=== PATIENT | male | born 1975 | race Caucasian/White ===

== ENCOUNTER 2021-01-21 13:41 | Emergency (ER) | payer OTHER, BC, MEDICAID, SELFPAY ==
--- NOTE | ~2021-01-21 | XR_ITS ---
EXAMINATION: XR hand LT min 3V DATE: 01/21/2021 14:22 INDICATION: Pain and swelling at the left second and third digits TECHNIQUE: Posteroanterior, oblique and lateral views of the left hand were obtained. COMPARISON: None. FINDINGS: Alignment is normal. Subtle old healed fracture deformity at the neck of the fourth metacarpal. No ac sky fracture. Joint spaces are normal. Small bone island at the fourth middle phalanx. No cortical er osions or periosteal reaction. Nonspecific mild soft tissue swelling along the proximal aspect of the left second digit and about the third proximal interphalangeal joint. No soft tissue gas or radiopaq ue foreign bodies. IMPRESSION: 1. No acute osseous abnormality. Reviewed, dictated and finalized at location B.
[2021-01-21 13:59] VITALS: BP 158/91; PULSE 74; RESP 18; TEMP 37.2; O2SAT 100
--- NOTE | 2021-01-21 14:55 | ED.UPPEXIN ---
HPI - Extremity Injury (Upper) General Chief Complaint: Extremity Injury, Upper Stated Complaint: hand injury Time Seen by Provider: 01/21/21 14:42 Source: patient Mode of arrival: ambulatory Limitations: no limitations History of Present Illness HPI narrative: This is a 45 year old male that presents to the ER after an injury at work this morning. Jammed his fingers on a structure of a conveyor belt. Pain mostly in the second and third digit. Worse with movement and relieved with rest. Reports swelling to the area. Denies decreased ROM or numbness. Related Data Home Medications Medication Instructions Recorded Confirmed No Home Medications 01/21/21 01/21/21 Allergies Allergy/AdvReac Type Severity Reaction Status Date / Time No Known Allergies Allergy Verified 01/21/21 14:07 Review of Systems Review of Systems: CONSTITUTIONAL: Denies fever MUSCULOSKELETAL: Reports joint pain, and myalgia. NEUROLOGIC: Denies numbness All systems reviewed & are unremarkable except as noted in HPI and below PMFSH Past Medical History Medical History (Updated 01/21/21 @ 15:36 by Wendy Bullard PA-C) History of epilepsy Social History Social History (Updated 01/21/21 @ 14:59 by Wendy Bullard PA-C) Smoking status: Current every day smoker Substance use: never Exam Narrative: GENERAL: Well-appearing, well-nourished, and in no acute distress. HEAD: Normocephalic, atraumatic. EYES: EOMI. EXTREMITIES: Normal range of motion. Mild edema about the left second finger with bruising. Normal radial pulses. Normal sensation SKIN: Warm, dry, no rash. NEURO: No focal deficits. Alert and oriented x3. PSYCH: Normal mood and affect Course Vital Signs Vital signs: Vital Signs Temperature 98.9 F 01/21/21 13:59 Pulse Rate 74 01/21/21 13:59 Respiratory Rate 18 01/21/21 13:59 Blood Pressure 158/91 H 01/21/21 13:59 Pulse Oximetry 100 01/21/21 13:59 Temperature 98.9 F 01/21/21 13:59 Pulse Rate 74 01/21/21 13:59 Respiratory Rate 18 01/21/21 13:59 Blood Pressure 158/91 H 01/21/21 13:59 Pulse Oximetry 100 01/21/21 13:59 Procedures Orthopedic Splinting/Casting Injury #1: Splinting/Casting Date: 01/21/21 Splinting/Casting Time: 15:34 Side: left Upper Extremity Injury Location: finger Upper Extremity Immobilizer: finger (other) Splint: prefabricated Pre-Formed: metal foam finger splint Pre-Procedure Neuro Vascular Exam: normal Post-Procedure Neuro Vascular Exam: normal MDM - Extremity Injury (Upper) MDM Narrative Medical decision making narrative: Patient presents to the emergency department for left hand injury sustained earlier this morning. Reports injury to the second and third fingers. Left hand x-rays without acute osseous abnormalities. Patient was instructed on care of finger sprain. He is to follow-up with primary care doctor. He was given warnings to return to the ER Imaging Data Radiologist's impression: ITS Impressions Hand X-Ray 01/21/21 14:29 IMPRESSION: 1. No acute osseous abnormality. Critical Care Time Critical Care Time Critical Care Time: No Discharge Plan Discharge Clinical Impression: Finger sprain Qualifiers: Encounter type: initial encounter Finger: index finger Sprain of finger site: interphalangeal joint Laterality: left Qualified Code(s): S63.631A - Sprain of interphalangeal joint of left index finger, initial encounter Patient Disposition: Home, Self-Care Condition: Stable Instructions: Finger Sprain (ED) Additional Instructions: Return to the emergency department if you experience fever, redness and swelling of your hand, numbness, or any other symptoms that are concerning to you Rest. Ice to the area. Tylenol or ibuprofen as needed for discomfort Follow-up with your primary care doctor Prescriptions: No Action No Home Medications RF: 0 Foll
== END 2021-01-21 15:46 | disposition home or self-care (01) ==
PROVIDERS: Emergency Provider Emergency Medicine
DX: S63.631A Sprain of interphalangeal joint of left index finger, initial encounter (principal); G40.909 Epilepsy, unspecified, not intractable, without status epilepticus; F17.200 Nicotine dependence, unspecified, uncomplicated; W22.8XXA Striking against or struck by other objects, initial encounter
CPT/HCPCS: 29130; 73130; 99283

== ENCOUNTER 2022-04-09 12:03 | Emergency (ER) | payer OTHER, MEDICAID, SELFPAY ==
--- NOTE | ~2022-04-09 | XR_ITS ---
EXAMINATION: XR lumbar spine 2-3V DATE: 04/09/2022 13:12 INDICATION: Low back pain, bilateral lower limb numbness TECHNIQUE: Anteroposterior and lateral views of the lumbar spine, and cone-down lateral view of the l umbosacral junction were obtained. COMPARISON: None. FINDINGS: No fracture, dislocation, or subluxation. The vertebral body heights and intervertebral dis c spaces are normal. The paravertebral soft tissues are unremarkable. There is mild facet joint osteo arthritis of the lower lumbar spine. IMPRESSION: 1. No acute osseous abnormality. Reviewed, dictated and finalized at location A. MANAGER
[2022-04-09 12:12] VITALS: BP 147/82; PULSE 70; RESP 12; TEMP 37.4; O2SAT 100
--- NOTE | 2022-04-09 13:33 | ED.BACK ---
HPI - Back Pain/Injury General Chief Complaint: Back Pain/Injury Stated Complaint: Back and neck pain Time Seen by Provider: 04/09/22 12:50 History of Present Illness HPI Narrative: 47-year-old male history of seizures presents to the emergency room for evaluation of lower back pain. 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 Patient states pain is worse with ambulation. Denies any anesthesias or saddle paresthesia. Denies any bowel or bladder habits. No low back red flags. Pain is worse with rotation and lateral bend Related Data Allergies Allergy/AdvReac Type Severity Reaction Status Date / Time No Known Allergies Allergy Verified 01/21/21 14:07 Review of Systems Review of Systems: CONSTITUTIONAL: Denies fever, chills, or sweats. EYES: Denies visual changes, redness, or discharge. ENT: Denies rhinorrhea, congestion, sore throat, or otalgia. CARDIOVASCULAR: Denies chest pain, palpitations, or edema. RESPIRATORY: Denies cough or dyspnea. GASTROINTESTINAL: Denies abdominal pain, nausea, vomiting, or diarrhea. GENITOURINARY: Denies dysuria or hematuria. SKIN: Denies rash or itching. MUSCULOSKELETAL: Reports low back pain NEUROLOGIC: Denies headache, numbness, dizziness, or weakness. PSYCHIATRIC: Denies anxiety or depression. [facility] Past Medical History Medical History History of epilepsy Social History Social History Smoking status: Current every day smoker Substance use: never Exam Narrative: GENERAL: Well-appearing, well-nourished, no physical limitations, and in no acute distress. HEAD: Normocephalic, atraumatic. EYES: Conjunctivae normal, PERRLA and EOMI. CHEST: Clear to auscultation. No respiratory distress. No wheezes rales or rhonchi. HEART: Regular rate and rhythm. No murmur heard. Normal peripheral pulses. BACK: No midline lumbar tenderness, step-offs, bony abnormality; limited range of motion bilateral rotation and lateral bend; +SLE LLE EXTREMITIES: Normal range of motion. No edema. No clubbing or cyanosis SKIN: Warm, dry, no rash. No noted wounds NEURO: No focal deficits. Alert and oriented x3. MAEW. CN's II-XI intact bilaterally, antalgic gait PSYCH: Cooperative. Normal mood and affect. Course Vital Signs Vital signs: Vital Signs Temperature 37.4 C 04/09/22 12:12 Pulse Rate 70 04/09/22 12:12 Respiratory Rate 12 04/09/22 12:12 Blood Pressure 147/82 H 04/09/22 12:12 Pulse Oximetry 100 04/09/22 12:12 Temperature 37.4 C 04/09/22 12:12 Pulse Rate 70 04/09/22 12:12 Respiratory Rate 12 04/09/22 12:12 Blood Pressure 147/82 H 04/09/22 12:12 Pulse Oximetry 100 04/09/22 12:12 Discharge Plan Discharge Clinical Impression: Strain of lumbar region Patient Disposition: Home, Self-Care Condition: Stable Instructions: Antibiotic Form, Acute Low Back Pain (ED) Prescriptions: New methocarbamol 500 mg tablet 500 mg PO TID Qty: 21 0RF naproxen 500 mg tablet 500 mg PO BID Qty: 14 0RF Follow-up/Referrals: PHYSICIAN,CARROTING MACHINE OFFBEARER [Primary Care Provider] - Stand Alone Forms: Work/School Release IP Time of Disposition: 13:36
== END 2022-04-09 13:53 | disposition home or self-care (01) ==
LOC: ANHED 13:43
PROVIDERS: Emergency Provider Nurse Practitioner Family; PCP Nurse Practitioner Family
DX: S39.012A Strain of muscle, fascia and tendon of lower back, initial encounter (principal); F17.200 Nicotine dependence, unspecified, uncomplicated; X50.0XXA Overexertion from strenuous movement or load, initial encounter; Y99.0 Civilian activity done for income or pay
CPT/HCPCS: 72100; 99283

== ENCOUNTER 2022-06-20 15:03 | Emergency (ER) | payer OTHER, BC, SELFPAY ==
--- NOTE | ~2022-06-20 | XR_ITS ---
EXAMINATION: XR wrist LT min 3V DATE: 06/20/2022 15:48 INDICATION: Left wrist pain. Fall. TECHNIQUE: 4 views of left wrist were obtained. COMPARISON: Left hand radiographs 01/21/2021 FINDINGS: Bone alignment is normal. No fracture. Joint spaces are normal. IMPRESSION: 1. No fracture. Reviewed, dictated and finalized at location A. ER [employer] IMPRESSION: 1. No fracture.
[2022-06-20 15:30] VITALS: BP 154/79; PULSE 93; RESP 14; TEMP 36.6; O2SAT 100
--- NOTE | 2022-06-20 17:46 | ED.UPPEXIN ---
HPI - Extremity Injury (Upper) General Chief Complaint: Extremity Injury, Upper Stated Complaint: L. wrist injury Time Seen by Provider: 06/20/22 16:46 History of Present Illness HPI narrative: Patient is a 47-year-old male who presents ER with left wrist injury. He was at work when he tripped around one of his machines. He fell forward and directly onto his wrist. Sudden onset pain. Feels like he may have felt a pop. Has some tingling in the tips of his fingers. Has limited range of motion due to pain in the left wrist. Did not strike his head or lose consciousness. Related Data Allergies Allergy/AdvReac Type Severity Reaction Status Date / Time No Known Allergies Allergy Verified 01/21/21 14:07 Review of Systems Musculoskeletal: Musculoskeletal: Reports arthralgias and Reports joint swelling Integumentary/Breasts: Skin/Breast: Denies erythema and Denies rash Neurologic: Denies syncope, Denies focal weakness, Reports numbness (Fingertip tingling) and Denies weakness PMFSH Past Medical History Medical History (Updated 06/20/22 @ 18:26 by Manuel Donaldson MD) History of epilepsy Surgical History Surgical History (Updated 06/20/22 @ 18:26 by Manuel Donaldson MD) No pertinent past surgical history Social History Social History Smoking status: Current every day smoker Substance use: never Exam Narrative: GENERAL: Well-appearing, well-nourished, and in no acute distress. HEAD: Normocephalic, atraumatic. HEART: Regular rate and rhythm. Normal peripheral pulses. EXTREMITIES: Focused exam of the left upper extremity reveals tenderness over the carpal tunnel on around the radial aspect of the wrist. Slight swelling noted. Limited range of motion of the wrist due to pain. Normal flexion-extension of the fingers with brisk capillary refill. Patient is able to supinate and pronate without issue. No pain or tenderness at the elbow. Gross sensation intact in the hand without testing for two-point discrimination. SKIN: Warm, dry, no rash. NEURO: Alert and oriented x3. PSYCH: Normal mood and affect. Course Course Emergency Course: Patient informed of results of the x-ray which I reviewed myself. Patient reports he does not tolerate Velcro wrist splints for immobilization so will place a volar splint. Discussed need for follow-up. Work note given. Vital Signs Vital signs: Vital Signs Temperature 98 F 06/20/22 15:30 Pulse Rate 93 06/20/22 15:30 Respiratory Rate 14 06/20/22 15:30 Blood Pressure 154/79 H 06/20/22 15:30 Pulse Oximetry 100 06/20/22 15:30 Oxygen Delivery Autopap 06/20/22 15:30 Temperature 98 F 06/20/22 15:30 Pulse Rate 93 06/20/22 15:30 Respiratory Rate 14 06/20/22 15:30 Blood Pressure 154/79 H 06/20/22 15:30 Pulse Oximetry 100 06/20/22 15:30 Oxygen Delivery Autopap 06/20/22 15:30 MDM - Extremity Injury (Upper) Imaging Data Radiologist's impression: ITS Impressions Wrist X-Ray 06/20/22 16:06 IMPRESSION: 1. No fracture. Discharge Plan Discharge Clinical Impression: Left wrist sprain Patient Disposition: Home, Self-Care Condition: Stable Instructions: Wrist Sprain (ED) Additional Instructions: Continue to ice her wrist and take anti-inflammatories to help decrease your swelling. Follow-up with primary care doctor for further treatment evaluation. Prescriptions: New naproxen 375 mg tablet 375 mg PO BID Qty: 14 0RF No Action methocarbamol 500 mg tablet 500 mg PO TID Qty: 21 0RF naproxen 500 mg tablet 500 mg PO BID Qty: 14 0RF Follow-up/Referrals: Frida,TWAN GarciaP-BC [Primary Care Provider] - Stand Alone Forms: Work/School Release IP
[2022-06-20] MEDS: HYDROcodone/acetaminophen (*CRX) 5-325 MG TABLET 1 TAB PO (17:52)
[2022-06-20 18:22] VITALS: TEMP 36.5
[2022-06-20 18:27] VITALS: BP 159/100; PULSE 66; RESP 16; TEMP 36.5; O2SAT 100
== END 2022-06-20 18:42 | disposition home or self-care (01) ==
PROVIDERS: Emergency Provider Emergency Medicine; PCP Nurse Practitioner Family
DX: S63.502A Unspecified sprain of left wrist, initial encounter (principal); G40.909 Epilepsy, unspecified, not intractable, without status epilepticus; F17.200 Nicotine dependence, unspecified, uncomplicated; W01.0XXA Fall on same level from slipping, tripping and stumbling without subsequent striking against object, initial encounter
CPT/HCPCS: 29125; 73110; 99283; A9270

== ENCOUNTER 2023-06-23 14:31 | Emergency (ER) | payer OTHER, BC, SELFPAY ==
--- NOTE | ~2023-06-23 | XR_ITS ---
EXAMINATION: XR ribs RT 2V w CXR 2V DATE: 06/23/2023 15:16 INDICATION: Right rib pain. TECHNIQUE: Frontal and lateral views of the chest and 2 views on 3 radiographs of the right ribs were obtained. COMPARISON: None. FINDINGS: CHEST TWO VIEWS: There is no pneumonia, pleural effusion, or pneumothorax. The heart size is normal. There are electrodes in left neck with electronic device in left chest. RIGHT RIBS: There is no rib fracture. IMPRESSION: 1. No rib fracture. Reviewed, dictated and finalized at location E. BRICK LAYER HELPER IMPRESSION: 1. No rib fracture.
[2023-06-23 14:37] VITALS: BP 148/86; PULSE 73; RESP 18; TEMP 36.4; O2SAT 99
--- NOTE | 2023-06-23 14:48 | ED.GENADULT ---
HPI - General Adult General Chief complaint: Unspecified Stated complaint: musle chest injury Time Seen by Provider: 06/23/23 14:48 Source: patient Mode of arrival: ambulatory Limitations: no limitations History of Present Illness HPI narrative: Dong is a 48-year-old male patient presenting to the clinic today with complaints of anterior chest wall pain. He reports that he was pushing about a 1000 lb and is having pain to the right anterior chest wall. States he felt a pop when he was pushing this. Pain is worse with cough, sneezing, or taking deep breaths. This occurred today. Related Data Allergies Allergy/AdvReac Type Severity Reaction Status Date / Time No Known Allergies Allergy Verified 01/21/21 14:07 Review of Systems Review of Systems: Pertinent positives per HPI. Patient denies any fever, chills, rash, headache, visual changes, dizziness, cough, runny nose, sore throat, shortness of breath, chest pain, palpitations, nausea, vomiting, diarrhea, constipation, abdominal pain, or any urinary issues. PMFSH Past Medical History Medical History History of epilepsy Surgical History Surgical History No pertinent past surgical history Social History Social History Smoking status: Current every day smoker Substance use: never Comments At the time of my signature, I reviewed and agree with the nursing past medical, surgical, social, and family history. There is no relevant family history pertinent to the patient complaint. Exam Narrative: General: Well-developed, well nourished, in no apparent distress Head: Normocephalic, atraumatic. Chest wall: Even rise and fall of the chest wall, no bruising or swelling noted, tenderness to palpation to the right anterior ribs just below the breast Cardio: Regular rate and rhythm, s1 and s2 normal, no murmur appreciated. Resp: Clear to auscultation bilaterally, no rhonchi, rales, wheezing or rubs. Extremities: No deformity, no edema, no cyanosis, capillary refill less than 2 seconds, peripheral pulses palpable and strong. Integumentary: [employer], warm, and dry, intact without lesion, no rashes. Course Course Emergency Course: Portions of this record may have been created with voice recognition software. Vital Signs Vital signs: Vital Signs Temperature 36.4 C 06/23/23 14:37 Pulse Rate 73 06/23/23 14:37 Respiratory Rate 18 06/23/23 14:37 Blood Pressure 148/86 H 06/23/23 14:37 Pulse Oximetry 99 06/23/23 14:37 Oxygen Delivery Room Air 06/23/23 14:37 Temperature 36.4 C 06/23/23 14:37 Pulse Rate 73 06/23/23 14:37 Respiratory Rate 18 06/23/23 14:37 Blood Pressure 148/86 H 06/23/23 14:37 Pulse Oximetry 99 06/23/23 14:37 Oxygen Delivery Room Air 06/23/23 14:37 Vital signs reviewed Medical Decision Making MDM Narrative Medical decision making narrative: At the time of visit patient is resting comfortably on the exam table. Patient appears to be nontoxic. Diagnostics: Right rib x-rays negative for any sign of fracture. Plan: I suspect patient has acute chest wall pain. Will send in prescription for naproxen. supportive measures were discussed with the patient and they voiced understanding discharge instructions and agrees to treatment plan. Return precautions reviewed Differential Diagnosis Differential Diagnosis: Rib contusion, rib fracture, costochondritis, chest wall pain Vital Signs Vital Signs: Vital Signs Temperature 36.4 C 06/23/23 14:37 Pulse Rate 73 06/23/23 14:37 Respiratory Rate 18 06/23/23 14:37 Blood Pressure 148/86 H 06/23/23 14:37 Pulse Oximetry 99 06/23/23 14:37 Oxygen Delivery Room Air 06/23/23 14:37 Temperature 36.4 C 06/23/23 14:37 Pulse Rate 73 06/23/23 14:37 Respira
--- NOTE | 2023-06-23 15:04 | PC.NURSE ---
Pt states was pushing a commercial shelf when he felt a pop in right chest. C/O pain with cough, deep breaths. Resp reg & unlabored.
== END 2023-06-23 16:00 | disposition home or self-care (01) ==
PROVIDERS: Emergency Provider Nurse Practitioner Family; PCP Nurse Practitioner Family
DX: R07.89 Other chest pain (principal); G40.909 Epilepsy, unspecified, not intractable, without status epilepticus; F17.200 Nicotine dependence, unspecified, uncomplicated
CPT/HCPCS: 71046; 71100; 99283